=== PATIENT | male | born 1945 | race Two or more races ===

== ENCOUNTER 2022-09-02 08:37 | Inpatient (IN) | payer OTHER ==
[~2022-09-02] VITALS: Ht 177.8 cm; Wt 113.8 kg
[2022-09-02] MEDS ORDERED: SODIUM CHLORIDE 0.9% 1,000 ML IV ONE (08:45)
[2022-09-02 09:11] LABS: Basophils # (auto) 0 10 ^3/uL (0-0.2); Basophils % (auto) 0.5 % (0.0-2.0); Eosinophils # (auto) 0.2 10 ^3/uL (0-0.8); Eosinophils % (auto) 2.9 % (0.0-7.0); Hematocrit 37.9 % (41.0-53.0); Hemoglobin 13.1 g/dL (13.5-17.5); Lymphocytes # (auto) 0.6 10 ^3/uL (0.4-5.4); Lymphocytes % (auto) 7.6 % (10.0-50.0); Mean Corpuscular Hemoglobin 29.8 pg (28.0-32.0); Mean Corpuscular Hgb Conc. 34.4 g/dL (32.0-36.0); Mean Corpuscular Volume 86.6 fL (80.0-100.0); Monocytes # (auto) 0.9 10 ^3/uL (0-1.3); Monocytes % (auto) 11.6 % (0.0-12.0); Neutrophils # (auto) 6.2 10 ^3/uL (1.6-8.6); Neutrophils % (auto) 77.4 % (37.0-80.0); Red Blood Cells 4.38 10^6/uL (4.5-5.90); Red Cell Distribution Width 17.3 % (11.8-14.3)
[2022-09-02 09:30] LABS: Albumin 3.3 g/dL (3.4-5.0); Calcium 8.7 mg/dL (8.5-10.1); Potassium 3.3 mmol/L (3.5-5.1)
[2022-09-02 09:34] LABS: BUN/Creatinine Ratio 9.7; Bilirubin, Total 6.6 mg/dL (0.2-1.0); Total Protein 6.3 g/dL (6.4-8.2)
[2022-09-02 13:57] LABS: Urine Bacteria NONE SEEN /hpf (None Seen); Urine Blood Negative /uL (Negative); Urine Hyaline Cast FEW /lpf (0 - 2); Urine Mucus FEW (None Seen); Urine Specific Gravity 1.014 (1.001-1.035); Urine WBC 1 /hpf (0 - 3)
[2022-09-02] MEDS ORDERED: ACETAMINOPHEN 325 MG TAB PO PRN (15:15)
[2022-09-02] MEDS ORDERED: NITROGLYCERIN 0.4 MG SL TAB SL PRN (15:15)
[2022-09-02] MEDS ORDERED: MORPHINE SULFATE INJ 2 MG/ml SYRG IV PRN (15:15)
[2022-09-02] MEDS: SODIUM CHLORIDE 0.9% 1,000 ML IV SCH ×2 (21:57→23:15)
[2022-09-02] MEDS ORDERED: LORazepam 2MG/ML-1ML VIAL IV PRN (22:00)
[2022-09-02 22:32] VITALS: BP 111/70
[2022-09-03 06:42] LABS: Basophils # (auto) 0.1 10 ^3/uL (0-0.2); Basophils % (auto) 0.6 % (0.0-2.0); Eosinophils # (auto) 0.1 10 ^3/uL (0-0.8); Eosinophils % (auto) 1.5 % (0.0-7.0); Hematocrit 40.2 % (41.0-53.0); Hemoglobin 14.1 g/dL (13.5-17.5); Lymphocytes # (auto) 0.6 10 ^3/uL (0.4-5.4); Lymphocytes % (auto) 6.2 % (10.0-50.0); Mean Corpuscular Hemoglobin 30.5 pg (28.0-32.0); Mean Corpuscular Hgb Conc. 35.1 g/dL (32.0-36.0); Mean Corpuscular Volume 86.9 fL (80.0-100.0); Monocytes # (auto) 1.2 10 ^3/uL (0-1.3); Monocytes % (auto) 12.1 % (0.0-12.0); Neutrophils # (auto) 7.8 10 ^3/uL (1.6-8.6); Neutrophils % (auto) 79.6 % (37.0-80.0); Nucleated Red Blood Cells % 0.1 %; Red Blood Cells 4.63 10^6/uL (4.5-5.90); Red Cell Distribution Width 17.5 % (11.8-14.3); White Blood Cell 9.8 10^3/uL (4.4-10.8)
[2022-09-03 06:49] LABS: Albumin 3.2 g/dL (3.4-5.0)
[2022-09-03 06:52] LABS: Folate (Folic Acid) 22.01 ng/mL (5.38-24)
[2022-09-03 06:52] LABS: BUN/Creatinine Ratio 10.2; Bilirubin, Total 7.3 mg/dL (0.2-1.0); Total Protein 7.1 g/dL (6.4-8.2)
[2022-09-03] MEDS: SODIUM CHLORIDE 0.9% 1,000 ML IV SCH ×3 (07:56→23:27)
[2022-09-03 08:50] LABS: Cholesterol 88 mg/dL (< 200)
[2022-09-03 08:56] LABS: HDL Cholesterol 20 mg/dL (40-59); LDL Cholesterol 69 mg/dL (< 100); Triglycerides 103 mg/dL (< 150)
[2022-09-03] MEDS: ASPirin-EC 81 mg tab PO SCH (11:22)
[2022-09-03] MEDS: ENOXAPARIN SOD 40 MG/0.4 ML SYRINGE SC SCH (11:22)
[2022-09-04] MEDS: SODIUM CHLORIDE 0.9% 1,000 ML IV SCH ×3 (07:06→23:19)
[2022-09-04 08:32] LABS: Basophils # (auto) 0 10 ^3/uL (0-0.2); Basophils % (auto) 0.4 % (0.0-2.0); Eosinophils # (auto) 0 10 ^3/uL (0-0.8); Eosinophils % (auto) 0.2 % (0.0-7.0); Hematocrit 39.3 % (41.0-53.0); Hemoglobin 13.5 g/dL (13.5-17.5); Lymphocytes # (auto) 0.6 10 ^3/uL (0.4-5.4); Lymphocytes % (auto) 5.4 % (10.0-50.0); Mean Corpuscular Hemoglobin 29.9 pg (28.0-32.0); Mean Corpuscular Hgb Conc. 34.4 g/dL (32.0-36.0); Mean Corpuscular Volume 86.9 fL (80.0-100.0); Monocytes # (auto) 1.3 10 ^3/uL (0-1.3); Monocytes % (auto) 11.9 % (0.0-12.0); Neutrophils # (auto) 9.2 10 ^3/uL (1.6-8.6); Neutrophils % (auto) 82.1 % (37.0-80.0); Nucleated Red Blood Cells % 0.1 %; Red Blood Cells 4.52 10^6/uL (4.5-5.90); Red Cell Distribution Width 17.5 % (11.8-14.3); White Blood Cell 11.2 10^3/uL (4.4-10.8)
[2022-09-04 09:26] LABS: INR 1.25 (0.9-1.15)
[2022-09-04 10:22] VITALS: BP 143/88
[2022-09-04 11:12] LABS: Albumin 2.8 g/dL (3.4-5.0); Anion Gap 8 (5-15); Calcium 8.9 mg/dL (8.5-10.1); Carbon Dioxide 22 mmol/L (21-32); Chloride 111 mmol/L (98-107); Glucose 269 mg/dL (74-106); Potassium 3.3 mmol/L (3.5-5.1); Sodium 141 mmol/L (136-145)
[2022-09-04 11:14] LABS: Alanine Aminotransferase 307 U/L (16-61); Aspartate Aminotransferase 149 U/L (15-37); GFR African American 66 mL/min; GFR Non-African American 54 mL/min
[2022-09-04] MEDS: ASPirin-EC 81 mg tab PO SCH (11:50)
[2022-09-04] MEDS: ENOXAPARIN SOD 40 MG/0.4 ML SYRINGE SC SCH (11:52)
[2022-09-04 12:29] LABS: Alkaline Phosphatase 358 U/L (45-117); BUN/Creatinine Ratio 9.6; Bilirubin, Total 9.6 mg/dL (0.2-1.0); Blood Urea Nitrogen 13 mg/dL (7-18); Total Protein 6.8 g/dL (6.4-8.2)
[2022-09-04 19:00] VITALS: BP 136/88
[2022-09-04 22:00] VITALS: BP 130/84
[2022-09-05] MEDS: ONDANSETRON HCL 4 MG/2 ML VIAL IV PRN ×2 (00:42→22:57)
[2022-09-05 05:00] VITALS: BP 110/72
[2022-09-05] MEDS: SODIUM CHLORIDE 0.9% 1,000 ML IV SCH ×3 (07:15→23:15)
[2022-09-05 09:00] VITALS: BP 153/88
[2022-09-05] MEDS: ASPirin-EC 81 mg tab PO SCH (09:24)
[2022-09-05] MEDS: ENOXAPARIN SOD 40 MG/0.4 ML SYRINGE SC SCH (09:24)
[2022-09-05 11:43] LABS: Hepatitis A Ab IgM Negative; Hepatitis B Core IgM Negative
[2022-09-05 11:44] LABS: Hepatitis C Antibody Negative (Negative)
[2022-09-05 13:00] VITALS: BP 140/91
[2022-09-05 17:08] VITALS: BP 116/89
[2022-09-05 22:00] VITALS: BP 137/69
[2022-09-06 05:00] VITALS: BP 140/92
[2022-09-06] MEDS: SODIUM CHLORIDE 0.9% 1,000 ML IV SCH ×2 (07:30→15:15)
[2022-09-06] MEDS ORDERED: METF-869 PO (08:42)
[2022-09-06] MEDS ORDERED: TAMS0.4C36 PO (08:42)
[2022-09-06] MEDS ORDERED: ALLO300T2 PO (08:42)
[2022-09-06] MEDS ORDERED: ATOR20TA50 PO (08:42)
[2022-09-06 08:59] VITALS: BP 146/93
[2022-09-06] MEDS: ENOXAPARIN SOD 40 MG/0.4 ML SYRINGE SC SCH (10:37)
[2022-09-06] MEDS: ASPirin-EC 81 mg tab PO SCH (10:38)
[2022-09-06 13:00] VITALS: BP 128/77
[2022-09-06 16:03] LABS: Basophils # (auto) 0 10 ^3/uL (0-0.2); Basophils % (auto) 0.2 % (0.0-2.0); Eosinophils # (auto) 0.1 10 ^3/uL (0-0.8); Eosinophils % (auto) 1.2 % (0.0-7.0); Hematocrit 37.1 % (41.0-53.0); Hemoglobin 12.5 g/dL (13.5-17.5); Lymphocytes # (auto) 0.6 10 ^3/uL (0.4-5.4); Mean Corpuscular Hemoglobin 29.7 pg (28.0-32.0); Mean Corpuscular Hgb Conc. 33.7 g/dL (32.0-36.0); Mean Corpuscular Volume 88.2 fL (80.0-100.0); Monocytes # (auto) 1.2 10 ^3/uL (0-1.3); Monocytes % (auto) 10.6 % (0.0-12.0); Neutrophils # (auto) 8.9 10 ^3/uL (1.6-8.6); Nucleated Red Blood Cells % 0.1 %; Red Cell Distribution Width 17.6 % (11.8-14.3); White Blood Cell 10.8 10^3/uL (4.4-10.8)
[2022-09-06 16:20] LABS: Albumin 2.3 g/dL (3.4-5.0); BUN/Creatinine Ratio 15.2; Magnesium 2.2 mg/dL (1.6-2.6); Potassium 3.8 mmol/L (3.5-5.1)
[2022-09-06 16:22] LABS: Bilirubin, Total 11.9 mg/dL (0.2-1.0)
[2022-09-06 16:48] VITALS: BP 130/78
[2022-09-06] MEDS ORDERED: DEXTROSE (50%) 50ML SYRG IV PRN (18:00)
[2022-09-06] MEDS: ACCU-CHEK COMFORT CURVE STRIP VI SCH ×2 (18:01→21:47)
[2022-09-06] MEDS: InsuLIN REG 1unit/0.01ml Soln (100units/ml) SC SCH ×2 (18:04→21:48)
[2022-09-06] MEDS: ATORVASTATIN 20 MG TAB PO SCH (21:49)
[2022-09-06 22:00] VITALS: BP 123/66
[2022-09-07] MEDS: SODIUM CHLORIDE 0.9% 1,000 ML IV SCH ×4 (00:19→23:15)
[2022-09-07] MEDS: ONDANSETRON HCL 4 MG/2 ML VIAL IV PRN ×3 (02:34→20:39)
[2022-09-07 05:00] VITALS: BP 118/67
[2022-09-07] MEDS: ACCU-CHEK COMFORT CURVE STRIP VI SCH ×4 (06:30→22:01)
[2022-09-07] MEDS: InsuLIN REG 1unit/0.01ml Soln (100units/ml) SC SCH ×4 (06:32→21:55)
[2022-09-07 09:00] VITALS: BP 125/74
[2022-09-07] MEDS: ASPirin-EC 81 mg tab PO SCH (09:50)
[2022-09-07] MEDS: ENOXAPARIN SOD 100 MG/1 ML SYRINGE SC SCH ×2 (09:50→21:53)
[2022-09-07] MEDS: METOPROLOL TARTRATE 25 MG TAB PO SCH ×2 (09:53→22:01)
[2022-09-07 13:30] VITALS: BP 115/70
[2022-09-07 17:00] VITALS: BP 111/79
[2022-09-07] MEDS ORDERED: ACETAMINOPHEN 325 MG TAB PO ONE (17:52)
[2022-09-07] MEDS: MORPHINE SULFATE INJ 2 MG/ml SYRG IV PRN (20:34)
[2022-09-07] MEDS: ATORVASTATIN 20 MG TAB PO SCH (21:53)
[2022-09-07 22:00] VITALS: BP 123/79
[2022-09-08] MEDS: ONDANSETRON HCL 4 MG/2 ML VIAL IV PRN (02:10)
[2022-09-08] MEDS: MORPHINE SULFATE INJ 2 MG/ml SYRG IV PRN (02:11)
[2022-09-08 05:00] VITALS: BP 111/74
[2022-09-08] MEDS: InsuLIN REG 1unit/0.01ml Soln (100units/ml) SC SCH ×4 (06:12→21:47)
[2022-09-08] MEDS: ACCU-CHEK COMFORT CURVE STRIP VI SCH ×4 (06:35→21:35)
[2022-09-08 08:00] VITALS: BP 114/79
[2022-09-08] MEDS: ASPirin-EC 81 mg tab PO SCH (09:41)
[2022-09-08] MEDS: METOPROLOL TARTRATE 25 MG TAB PO SCH ×2 (09:41→21:44)
[2022-09-08 12:00] VITALS: BP 105/68
[2022-09-08] MEDS: ENOXAPARIN SOD 100 MG/1 ML SYRINGE SC SCH ×2 (12:08→21:47)
[2022-09-08] MEDS: SODIUM CHLORIDE 0.9% 1,000 ML IV SCH ×2 (12:08→19:54)
[2022-09-08 16:00] VITALS: BP 110/67
[2022-09-08] MEDS: ATORVASTATIN 20 MG TAB PO SCH (21:41)
[2022-09-08 22:00] VITALS: BP 108/71
[2022-09-09 05:00] VITALS: BP 112/78
[2022-09-09] MEDS: ACCU-CHEK COMFORT CURVE STRIP VI SCH ×3 (06:04→17:00)
[2022-09-09] MEDS: InsuLIN REG 1unit/0.01ml Soln (100units/ml) SC SCH ×3 (06:37→17:40)
[2022-09-09 06:40] LABS: Potassium 3.8 mmol/L (3.5-5.1)
[2022-09-09 06:57] LABS: Albumin 2.1 g/dL (3.4-5.0); BUN/Creatinine Ratio 18.6; Bilirubin, Total 12.3 mg/dL (0.2-1.0)
[2022-09-09 09:08] VITALS: BP 118/74
[2022-09-09] MEDS: ASPirin-EC 81 mg tab PO SCH (09:44)
[2022-09-09] MEDS: ENOXAPARIN SOD 100 MG/1 ML SYRINGE SC SCH (09:44)
[2022-09-09] MEDS: SODIUM CHLORIDE 0.9% 1,000 ML IV SCH ×2 (09:44→15:15)
[2022-09-09] MEDS: METOPROLOL TARTRATE 25 MG TAB PO SCH (09:44)
[2022-09-09 13:00] VITALS: BP 121/79
[2022-09-09 16:46] VITALS: BP 119/73
[2022-09-09] MEDS ORDERED: ENOXAPARIN SOD 120 MG/0.8 ML SYRINGE SC SCH (22:00)
== END 2022-09-09 20:45 | disposition short-term general hospital (02) | DRG 444 ==
LOC: EDBD 08:37 → ER 08:37 → TELE 15:20 → TELE-E-ADS 09-04 09:37 → TELE-CENTR 09-04 19:01
PROVIDERS: ADMIT Internal Medicine; ATTEND Internal Medicine
PROC: 5A09357 Assistance with Respiratory Ventilation, Less than 24 Consecutive Hours, Continuous Positive Airway Pressure (ICD-10-PCS; principal; 2022-09-04)
DX: K83.1 Obstruction of bile duct (principal); G93.41 Metabolic encephalopathy; I63.9 Cerebral infarction, unspecified; G40.209 Localization-related (focal) (partial) symptomatic epilepsy and epileptic syndromes with complex partial seizures, not intractable, without status epilepticus; E87.20 Acidosis, unspecified; N17.9 Acute kidney failure, unspecified; N13.8 Other obstructive and reflux uropathy; C25.9 Malignant neoplasm of pancreas, unspecified; K76.82 Hepatic encephalopathy; I48.0 Paroxysmal atrial fibrillation; I10 Essential (primary) hypertension; G47.30 Sleep apnea, unspecified; E11.9 Type 2 diabetes mellitus without complications; Z20.822 Contact with and (suspected) exposure to COVID-19; E78.5 Hyperlipidemia, unspecified; E87.6 Hypokalemia; Z96.642 Presence of left artificial hip joint; W18.39XA Other fall on same level, initial encounter; Z96.653 Presence of artificial knee joint, bilateral; F17.210 Nicotine dependence, cigarettes, uncomplicated; G47.33 Obstructive sleep apnea (adult) (pediatric); N40.1 Benign prostatic hyperplasia with lower urinary tract symptoms; Z79.82 Long term (current) use of aspirin; Z79.4 Long term (current) use of insulin; Z82.49 Family history of ischemic heart disease and other diseases of the circulatory system; Z83.3 Family history of diabetes mellitus; Z85.828 Personal history of other malignant neoplasm of skin; Y93.89 Activity, other specified; Y92.89 Other specified places as the place of occurrence of the external cause; Y99.8 Other external cause status
CPT/HCPCS: 36415; 70450; 70551; 71045; 74181; 76705; 80053; 80061; 80074; 81001; 82105; 82140; 82378; 82607; 82746; 82962; 83735; 84443; 84484; 85025; 85610; 86301; 87426; 93306; 93886; 94660; 95819; 96360; 96361; 97110; 97116; 97163; 97530; G0378; J1815; J2405

== ENCOUNTER 2022-10-13 15:38 | Emergency (ER) | payer OTHER ==
[~2022-10-13] VITALS: Ht 175.3 cm; Wt 77.0 kg
[~2022-10-13 15:38] MED LIST: ALLO300T2 PO; ATOR20TA50 PO; METF-869 PO; TAMS0.4C36 PO
[2022-10-13 16:35] LABS: Hematocrit 39.3 % (41.0-53.0); Hemoglobin 12.3 g/dL (13.5-17.5); Mean Corpuscular Hemoglobin 27.4 pg (28.0-32.0); Mean Corpuscular Hgb Conc. 31.4 g/dL (32.0-36.0); Mean Corpuscular Volume 87.2 fL (80.0-100.0); Red Blood Cells 4.51 10^6/uL (4.5-5.90); Red Cell Distribution Width 17.5 % (11.8-14.3); White Blood Cell 22.7 10^3/uL (4.4-10.8)
[2022-10-13 16:43] LABS: Albumin 1.8 g/dL (3.4-5.0); BUN/Creatinine Ratio 15.3 (10.0-20.0); Calcium 8.8 mg/dL (8.5-10.1); Potassium 3.5 mmol/L (3.5-5.1)
[2022-10-13] MEDS ORDERED: SOD CHL 0.45% 1,000 ML IV ONE (16:45)
[2022-10-13 16:49] LABS: Basophils % (manual) 0 (0.0-2.0); Blast Cells 0; Eosinophils % (manual) 0 (0-7); Metamyelocytes % 0; Myelocytes % 0; Promyelocytes % 0; Reactive Lymphocytes 0
[2022-10-13 16:57] LABS: Bilirubin, Total 14.2 mg/dL (0.2-1.0); Total Protein 6.8 g/dL (6.4-8.2)
[2022-10-13 17:02] LABS: Band Neutrophils % (manual) 8; Lymphocytes % (manual) 2 (10.0-50.0); Monocytes % (manual) 3 (0-12)
[2022-10-13 17:34] LABS: Urine Bacteria NONE SEEN /hpf (None Seen); Urine Blood 2+ /uL (Negative); Urine Mucus MODERATE (None Seen); Urine Specific Gravity 1.017 (1.001-1.035); Urine WBC 22 /hpf (0 - 3)
[2022-10-13] MEDS ORDERED: LACTATED RINGER'S 2,300 ML IV ONE (23:45)
[2022-10-13] MEDS ORDERED: VANCOMYCIN 1GM/250ML 250 ML IV ONE (23:45)
[2022-10-13] MEDS ORDERED: DexAMETHasone SOD PHOS 10MG/1ML VIAL INJ IV ONE (23:45)
[2022-10-13] MEDS ORDERED: PIPERACILLIN-TAZOB 3.375GM 100 ML IV ONE (23:45)
[2022-10-13] MEDS ORDERED: ASPirin 325 MG TAB PO ONE (23:45)
[2022-10-14 00:12] LABS: Mean Corpuscular Volume 86.1 fL (80.0-100.0)
[2022-10-14 00:33] LABS: Albumin 1.6 g/dL (3.4-5.0); BUN/Creatinine Ratio 18.4 (10.0-20.0); Calcium 8.1 mg/dL (8.5-10.1); Potassium 3.3 mmol/L (3.5-5.1)
[2022-10-14 00:39] LABS: Hemoglobin 11.8 g/dL (13.5-17.5)
[2022-10-14 00:46] LABS: Hematocrit 35.8 % (41.0-53.0); Mean Corpuscular Hemoglobin 28.4 pg (28.0-32.0); Mean Corpuscular Hgb Conc. 32.9 g/dL (32.0-36.0); Red Blood Cells 4.16 10^6/uL (4.5-5.90); Red Cell Distribution Width 16.8 % (11.8-14.3); White Blood Cell 18.6 10^3/uL (4.4-10.8)
[2022-10-14 00:47] LABS: Bilirubin, Total 13.4 mg/dL (0.2-1.0); Total Protein 5.5 g/dL (6.4-8.2)
[2022-10-14 00:50] VITALS: BP 127/74
[2022-10-14 00:52] LABS: Basophils % (manual) 0 (0.0-2.0); Blast Cells 0; Eosinophils % (manual) 0 (0-7); Metamyelocytes % 0; Myelocytes % 0; Promyelocytes % 0; Reactive Lymphocytes 0
[2022-10-14 01:37] LABS: Band Neutrophils % (manual) 7; Lymphocytes % (manual) 7 (10.0-50.0); Monocytes % (manual) 5 (0-12)
== END 2022-10-14 01:11 | disposition short-term general hospital (02) ==
LOC: ER 15:38 → EDBD 15:38 → ER 10-14 01:11
DX: U07.1 COVID-19 (principal); C78.7 Secondary malignant neoplasm of liver and intrahepatic bile duct; I10 Essential (primary) hypertension; E11.9 Type 2 diabetes mellitus without complications; M10.9 Gout, unspecified; F17.210 Nicotine dependence, cigarettes, uncomplicated; Z79.899 Other long term (current) drug therapy
CPT/HCPCS: 36415; 71045; 74176; 80053; 81001; 83690; 83880; 84484; 85007; 85027; 87426; 93005; 96361; 96365; 96375; 99285; J1100; J2543; J7030; J7120